=== PATIENT | male | born 1995 | race Caucasian/White ===

== ENCOUNTER 2017-06-28 05:24 | Day surgery (SDC) | payer BC ==
[2017-06-25 15:13] VITALS: BMI 39.0
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
[~2017-06-28] VITALS: Ht 180.3 cm; Wt 127.3 kg
[~2017-06-28 05:24] MED LIST: OXYC-57 PO; PATIENT'S ALLERGY INFO NEEDS ENTERED SCH
[2017-06-28 05:38] VITALS: BP 138/73; PULSE 82; TEMP 36.9; O2SAT 97; Ht 180.3 cm; Wt 127.3 kg
[2017-06-28] MEDS ORDERED: CEFAZOLIN 3000MG IV PUSH 15 ML IV SCH (06:00)
[2017-06-28] MEDS ORDERED: LACTATED RINGER'S 1000ML 1,000 ML IV SCH (06:00)
[2017-06-28] MEDS ORDERED: LIDOCAINE HCL 2% 2 ML VIAL (20MG/ML) ONE (06:47)
[2017-06-28] MEDS ORDERED: FENTANYL CITRATE INJ 50 MCG/1 ML 2 ML VIAL ONE (06:47)
[2017-06-28] MEDS ORDERED: MIDAZOLAM HCL 1 MG/ML 2ML VIAL ONE ×2 (06:47→07:53)
[2017-06-28] MEDS ORDERED: PROPOFOL IV EMULSION 10 MG/ML 20 ML VIAL IV ONE ×2 (06:47→08:23)
[2017-06-28] MEDS ORDERED: DEXAMETHASONE SOD INJ 4 MG/ML VIAL ONE (06:47)
[2017-06-28] MEDS ORDERED: ONDANSETRON INJ 2 MG/ML 2 ML VIAL ONE (06:47)
[2017-06-28] MEDS ORDERED: BACITRACIN 50000 UNIT VIAL ONE (06:51)
--- NOTE | 2017-06-28 07:37 | History & Physical Bridge Note ---
H&P Re-Evaluation Bridge Note: I have examined the patient, reviewed the History & Physical and in the interval since the performance of the History & Physical I have noted the following changes of clinical significance: No changes noted
[2017-06-28] MEDS ORDERED: LABETALOL HCL IV 5 MG/ML 20ML IV PRN (08:00)
[2017-06-28] MEDS ORDERED: ATROPINE SULFATE 0.1 MG/ML 5ML SYR IV PRN (08:00)
[2017-06-28] MEDS ORDERED: LIDOCAINE HCL 1% 20 ML VIAL ONE (08:00)
[2017-06-28] MEDS ORDERED: ONDANSETRON INJ 2 MG/ML 2 ML VIAL IV PRN (08:00)
[2017-06-28] MEDS ORDERED: KETOROLAC TROMETHAMINE 30 MG/ML VIAL IV. PRN (08:00)
[2017-06-28] MEDS ORDERED: HYDR-5688 PO (08:31)
--- NOTE | 2017-06-28 08:33 | Discharge Instructions ---
Discharge Instructions Date of Service Jun 28, 2017. Admission Reason for Admission: Left Middle Finger Pain, Hardware Discharge Discharge Diagnosis / Problem: left middle finger painful hardware Discharge Goals Goal(s): Decrease discomfort, Improve function Activity Recommendations Activity Limitations: per Instructions/Follow-up section Shower/Bathe: keep incision dry . Instructions / Follow-Up Instructions / Follow-Up ACTIVITY RECOMMENDATIONS: * Avoid lifting anything heavier than a medium water glass until your first post operative visit. SPECIAL CARE INSTRUCTIONS: * Your bandage should be left in place until 07.03.17. * Some drainage onto the dressing may occur. This is normal. * If the bandage feels excessively tight, you may loosen the elastic bandage. Then call the physician's office for further instructions. * If possible, keep your hand elevated above the level of your heart for the first 2 post operative days. You may use a sling if necessary. * You should move your fingers regularly (50-100 motions per hour) unless otherwise instructed. SPECIAL PRECAUTIONS: * If you notice increased drainage, fever over 101 degrees F. or severe, unremitting pain, call your physician/office at . * You may have been prescribed pain medication. If you experience nausea and/or skin rash, discontinue this medication and contact our office for an alternative medication. FOLLOW UP VISIT: If appointment is not already scheduled: Please call [facility] [place] to make a follow-up appointment for 2 weeks after your surgery at . Current Hospital Diet Patient's current hospital diet: Discharge Diet Recommended Diet: Regular Diet Procedures Procedures Performed: Manipulation under Anesthesia, Left Middle Finger Proximal Pin Removal x2 Pending Studies Studies pending at discharge: no Medical Emergencies . Who to Call and When: Medical Emergencies: If at any time you feel your situation is an emergency, please call [phone] immediately. . Non-Emergent Contact Non-Emergency issues call your: Surgeon Call Non-Emergent contact if: temperature is above 101, your pain is not controlled, your pain is worsening, wound has increased drainage, wound has increased redness . "Provider Documentation" section prepared by Alexsander Mendiola. . VTE Core Measure Inpt VTE Proph given/why not?: Treatment not indicated
--- NOTE | 2017-06-28 08:36 | [facility] Post Operative Brief Note ---
Immediate Operative Summary Operative Date Jun 28, 2017. Pre-Operative Diagnosis Left hand: Middle finger retained pins x2; pain; contracture middle finger PIP joint Post-Operative Diagnosis Left hand: Middle finger retained pins x2; pain; contracture middle finger PIP joint Procedure(s) Performed Left Middle Finger Proximal Phalanx Pin Removals x2, Manipulation under Anesthesia Middle finger PIP joint Surgeon Dr. Packer Director Of Market Intelligence Surgeon(s) none Estimated Blood Loss 1 ml Findings See dict Specimens a. explanted hardware left middle finger Drains none Anesthesia Digital block with sedation Complication(s) None Disposition Recovery Room / PACU
[2017-06-28] MEDS: FENTANYL CITRATE INJ 50 MCG/1 ML 2 ML VIAL IV PRN ×4 (08:44→09:03)
[2017-06-28] MEDS ORDERED: HYDROCODONE/ACETAMOPHEN 5/325MG TAB PO PRN (08:45)
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
--- NOTE | 2017-06-28 09:13 | DIAGNOSTIC IMAGING REPORT ---
LEFT MIDDLE FINGER 3 VIEWS HISTORY: Postop. Healing fracture. COMPARISON: None. FINDINGS: Nondisplaced transverse fracture through the proximal shaft of the proximal pharynx of the left middle finger. There is callus formation and mild bony bridging consistent with partial healing. Diffuse soft tissue swelling. A few additional lucencies through the proximal phalanx is likely due to prior pin placement. No hardware identified this time. There also is a healing fracture at the volar base of the middle phalanx. This is nondisplaced. IMPRESSION: Healing nondisplaced fractures seen within the proximal and middle phalanx of the left middle finger as described above. Electronically signed by: Aba Downing M.D. 06/28/2017 9:12 AM Dictated Date/Time: 06/28/2017 9:09 AM
[2017-06-28 09:25] VITALS: BP 173/81; PULSE 80; TEMP 36.5; O2SAT 96
--- NOTE | 2017-06-28 09:29 | Anesthesiology Progress Note ---
Anesthesia Post Op Note Date & Time Jun 28, 2017 at 09:29 Vital Signs Pain Intensity: 3 Vital Signs Past 12 Hours Date Time Temp Pulse Resp B/P (MAP) Pulse Ox O2 Delivery O2 Flow Rate FiO2 06/28/17 09:20 36.3 70 16 131/70 96 Room Air 06/28/17 09:10 69 16 147/85 96 Room Air 06/28/17 09:00 69 16 158/95 95 Room Air 06/28/17 08:50 84 16 143/91 98 Room Air 06/28/17 08:40 74 16 139/88 98 Room Air 06/28/17 08:31 36.1 72 16 151/84 97 Room Air 06/28/17 05:38 36.9 82 18 138/73 (94) 97 Room Air Notes Mental Status: alert / awake / arousable, participated in evaluation Pt Amnestic to Procedure: Yes Nausea / Vomiting: adequately controlled Pain: adequately controlled Airway Patency, RR, SpO2: stable & adequate BP & HR: stable & adequate Hydration State: stable & adequate Anesthetic Complications: no major complications apparent
[2017-06-28 09:55] VITALS: BP 125/66; PULSE 80; O2SAT 96
[2017-06-28 10:25] VITALS: BP 118/63; PULSE 85; O2SAT 98
== END 2017-06-28 10:42 | disposition home or self-care (01) ==
LOC: C.ACU 05:24
PROVIDERS: ATTEND Orthopaedic Surgery Sports Medicine
DX: T84.84XA Pain due to internal orthopedic prosthetic devices, implants and grafts, initial encounter (principal); M79.645 Pain in left finger(s); M24.542 Contracture, left hand; X58.XXXA Exposure to other specified factors, initial encounter

== ENCOUNTER → 2017-12-31 | Outpatient (CLI) | payer BC ==
[~2017-12-31] MED LIST changes: -PATIENT'S ALLERGY INFO NEEDS ENTERED SCH
[2017-12-31 18:18] LABS: BASO % 0.5 %; BASO ABS # 0.03 K/uL (0-0.2); EOS % 1.2 %; EOS ABS # 0.08 K/uL (0-0.5); HEMATOCRIT 47.2 % (42-52); HEMOGLOBIN 16.2 g/dL (14.0-18.0); IG# 0.03 K/uL (0.00-0.02); LYMPH % 25.6 %; LYMPH ABS # 1.65 K/uL (1.2-3.4); MEAN CELL VOLUME 84.7 fL (80-100); MEAN CORPUSCULAR HEMOGLOBIN 29.1 pg (25-34); MEAN CORPUSCULAR HGB CONC 34.3 g/dl (32-36); MEAN PLATELET VOLUME 11.2 fL (7.4-10.4); MONO % 5.3 %; MONO ABS # 0.34 K/uL (0.11-0.59); NEUT % 66.9 %; NEUT ABS # 4.32 K/uL (1.4-6.5); PLATELET COUNT 224 K/uL (130-400); RED CELL DISTRIBUTION WIDTH CV 12.9 % (11.5-14.5); WHITE BLOOD COUNT 6.45 K/uL (4.8-10.8)
[2017-12-31 18:33] LABS: ALBUMIN 4.2 gm/dl (3.4-5.0); ALT/SGPT 30 U/L (12-78); AST/SGOT 19 U/L (15-37); BLOOD UREA NITROGEN 13 mg/dl (7-18); CARBON DIOXIDE 31 mmol/L (21-32); CREATININE 0.99 mg/dl (0.60-1.40); GLUCOSE 94 mg/dl (70-99); LIPASE 106 U/L (73-393); POTASSIUM 4.2 mmol/L (3.5-5.1); SODIUM 140 mmol/L (136-145)
[2017-12-31 18:36] LABS: ALKALINE PHOSPHATASE 185 U/L (45-117); TOTAL PROTEIN 7.5 gm/dl (6.4-8.2)
== END | disposition home or self-care (01) ==
LOC: C.LABMFLN 13:03
PROVIDERS: ATTEND Physician Assistant
DX: R10.33 Periumbilical pain (principal); R10.12 Left upper quadrant pain